=== PATIENT | female | born 1985 | race Caucasian/White ===

== ENCOUNTER → 2017-12-23 | Outpatient (CLI) | payer OTHER | END | disposition home or self-care (01) | LOC: C.PATHSPEC 14:16 | PROVIDERS: ATTEND Dentist Oral and Maxillofacial Surgery | DX: D24.9 Benign neoplasm of unspecified breast (principal) ==

== ENCOUNTER 2021-02-23 04:44 | Inpatient (IN) ==
[2021-02-23] MEDS ORDERED: OXYTOCIN 30 UNITS/500 ML BAG IV PRN (05:25)
[2021-02-23] MEDS ORDERED: LACTATED RINGER'S 1,000 ML IV PRN (05:25)
[2021-02-23 05:56] LABS: Hematocrit (blood only) 36.6 % (37-47); Hemoglobin 12.5 g/dL (12.0-16.0); Mean Corpuscular Hemoglobin 29.8 pg (25-34); Mean Corpuscular Hgb Conc 34.2 g/dL (32-36); Mean Corpuscular Volume 87.1 fL (80-100); Mean Platelet Volume 13.1 fL (7.4-10.4); Platelet Count 219 K/uL (130-400); RDW Coefficient of Variation 13.2 % (11.5-14.5); RDW Standard Deviation 41.7 fL (36.4-46.3); White Blood Count 20.12 K/uL (4.8-10.8)
[2021-02-23] MEDS ORDERED: GENTAMICIN CONSULT ACTIVE PRN (07:47)
[2021-02-23] MEDS ORDERED: ePHEDrine sulfate 50 MG/ML AMP ONE (07:51)
[2021-02-23] MEDS ORDERED: ONDANSETRON INJ 2 MG/ML 2 ML VIAL ONE (07:51)
[2021-02-23] MEDS ORDERED: PHENYLEPHRINE HCL 10 MG/ML VIAL ONE (07:51)
[2021-02-23] MEDS ORDERED: OXYTOCIN 10 UNITS/ML VIAL ONE ×3 (07:51→08:50)
[2021-02-23] MEDS ORDERED: fentaNYL citrate 100 MCG/2 ML VIAL ONE (07:51)
[2021-02-23] MEDS ORDERED: METOCLOPRAMIDE HCL INJ 5 MG/ML 2 ML VIAL ONE (07:51)
[2021-02-23] MEDS ORDERED: MoRPHine SULFATE PF 1 MG/ML 10 ML AMP/VIAL ONE (07:51)
[2021-02-23] MEDS ORDERED: LACTATED RINGER'S 1,000 ML IV SCH (08:00)
--- NOTE | 2021-02-23 08:22 | Anesthesiology Consultation ---
Date of Service February 23, 2021 Assessment & Plan Chart Review Chart Review: Acceptable Risk for Surgery Consults Requested none ASA [id number] Proposed Anesthesia Anesthesia Type: Spinal Risk / Benefits Reviewed With: PT / POA / Parent / Guardian, Accepts Plan and Informed Consent Obtained Additional Comments: was called by ob for a stat primary cs secondary to breech. discussed sab and agreed to. H+p not completed in emr prior to procedure due to time constraint of stat case but oral interview occurred exam occurred. consent sign prior to case History Surgery Operation Date: 02/23/21 08:00 Proposed Procedures p Section in LD - J. Esteban Lawrence MD, FACOG Height/Weight Height: 5 ft 8 in Weight: 83.915 kg Allergies Allergy/AdvReac Type Severity Reaction Status Date / Time Penicillins Allergy Verified 02/21/21 15:57 Medications Home Medications Medication Instructions Recorded Confirmed Last Taken prenat.vits,arabella,[id number] 1 tab PO DAILY 03/26/20 02/23/21 02/22/21 Active Medications Generic Name Dose Route Start Last Admin Trade Name Marcelle PRN Reason Stop Dose Admin Clindamycin Phosphate 900 mg/ 56 mls @ 112 mls/hr 02/23/21 09:00 02/23/21 08:08 Dextrose IV 02/24/21 05:59 112 mls/hr 0900 HARRIS Administration NPO Date Last Intake of Fluids: 02/23/21 Time Last Intake of Fluids: 06:30 Date Last Intake of Solids: 02/23/21 Time Last Intake of Solids: 00:01 Past Medical History Medical History Breast pain, left Elderly primigravida Encounter for annual routine gynecological examination History of chicken pox Vaginal bleeding affecting early Exercise / Class Metabolic Activity II 4-5 Yardwork/Stairs/Walk up hill Past Family History Family History Father Kidney stone Grandfather (Maternal) Lung cancer Grandfather (Paternal) Bladder cancer Denies family history of Ovarian cancer Breast cancer Colorectal cancer Past Surgical History Surgical History H/O oral surgery excision extra tooth from upper jaw No pertinent past surgical history Past Anesthesia History No Hx of Anesthesia Complications and No Family Hx of Anesthesia Complications History of PONV No Hx of PONV and No Hx of Motion Sickness Social History Smoking Status: Never smoker Hx Alcohol Use: No Hx Substance Use: No Physical Exam Vital Signs Last Vital Signs Temp 36.5 C 02/23/21 07:00 Pulse 57 L 02/23/21 06:59 Resp 24 02/23/21 07:00 BP 135/80 02/23/21 06:59 ENMT Mouth: no TMJ abnormality Thyromental Distance: > or= 3.5 Finger Breadths Mallampati Class: II Neck normal visual inspection and trachea midline; neck extension not limited Respiratory normal respiratory effort Auscultation: lungs clear to auscultation bilaterally Cardiovascular Rate/Rhythm: regular rate and regular rhythm Heart Sounds: no murmur Musculoskeletal Spine: normal cervical ROM Extremities: full ROM of extremities Neurologic moves all extremities Psychiatric Orientation: alert and oriented x 3 Testing Laboratory Results 02/23/21 05:44
[2021-02-23] MEDS ORDERED: KETOROLAC 30 MG/ML VIAL IV PRN (08:25)
[2021-02-23] MEDS ORDERED: NALOXONE HCL 1 MG in SODIUM CHLORIDE 0.9% 1000ML 1,000 ML IV PRN (08:25)
[2021-02-23] MEDS ORDERED: MEPERIDINE HCL 25 MG/ML CARP/VIAL IV PRN (08:25)
[2021-02-23] MEDS ORDERED: METOCLOPRAMIDE HCL 20 MG in SODIUM CHLORIDE 0.9% 50 ML IV PRN (08:25)
[2021-02-23] MEDS ORDERED: PROMETHAZINE HCL 25 MG in SODIUM CHLORIDE 0.9% 50 ML IV PRN (08:25)
[2021-02-23] MEDS ORDERED: ePHEDrine sulfate 50 MG/ML AMP IV PRN (08:25)
[2021-02-23] MEDS ORDERED: ONDANSETRON INJ 2 MG/ML 2 ML VIAL IV PRN (08:25)
[2021-02-23] MEDS ORDERED: MoRPHine SULFATE 2 MG/ML CARP IV PRN (08:25)
[2021-02-23] MEDS ORDERED: NALOXONE HCL 0.08 MG in SYRINGE 1.8 ML IV PRN (08:25)
[2021-02-23] MEDS ORDERED: NALOXONE HCL 0.4 MG/1 ML VIAL/CARP IV PRN (08:25)
[2021-02-23] MEDS ORDERED: diphenhydrAMINE 50 MG/ML VIAL IV PRN (08:25)
[2021-02-23] MEDS ORDERED: MoRPHine SULFATE PF 1 MG/ML 10 ML AMP/VIAL INT SPINAL ONE (08:25)
[2021-02-23] MEDS ORDERED: LACTATED RINGER'S 500 ML IV PRN (08:25)
[2021-02-23] MEDS ORDERED: NO NARCOTICS OR SEDATIVES SCH (08:30)
[2021-02-23] MEDS ORDERED: DC INTRASPINAL MORPHINE SCH (08:30)
[2021-02-23] MEDS ORDERED: SODIUM CHLORIDE 0.9% 1000ML 1,000 ML IV SCH (08:30)
[2021-02-23 08:44] LABS: Base Excess Cord Arterial Bld -1.8 mEq/L (-9-1.8); CO2 Cord Arterial Blood 59 mmHg (39.1-73.5); HCO3 Cord Arterial Blood 27 mmol/L (19.7-28.5); pH Cord Arterial Blood 7.27 (7.1-7.38)
[2021-02-23 08:47] LABS: Base Excess Cord Venous Blood -1.4 mEq/L (-7.7-1.9); Cord Venous Blood HCO3 24 mmol/L (18.4-26.8); Cord Venous Blood PCO2 44 mmHg (30.4-57.2); Cord Venous Blood PO2 20 mmHg (14.1-43.3); Cord Venous Blood pH 7.36 (7.20-7.44)
[2021-02-23 08:48] LABS: O2 Saturation Cord Venous Bld < 60.0 % (<68); Oxygen Sat Cord Arterial Blood < 60.0 % (<60); PO2 Cord Arterial Blood 10 mmHg (4.1-31.7)
--- NOTE | 2021-02-23 08:50 | History & Physical Report ---
Date of Service February 23Stephanie who arrived with ruptured membranes in labor and delivery in the administrative court justice hours she progressed from 1 cm to 8 cm at that time it was discovered by nursing that she was in breech presentation I then checked the patient she was then fully dilated I scanned with the ultrasound she was in fact breech presentation I palpated a destinee breech. At this stage we recommended section or I reviewed this with the patient including risks benefits and alternatives at this stage though was an emergency and I strongly recommend ed the patient agreed consent was signed section. The patient was counseled to the nature of the procedure including alternatives such as labor. Risks were discussed including bleeding infection injury to bowel bladder ureter vessels and even baby. Deep Vein thrombosis, pulmonary embolus discussed. Breakdown of incision reviewed. Deep vein thrombosis pulmonary embolus hernia and failure of the incision to heal were discussed Patient verbalized understanding of this and was given ample time to ask questions Assessment & Plan Admission and Anticipated Discharge Date Admission Date: February 23, 2021 History of Present Illness Primary Care Provider: NO PCP Allergies Allergy/AdvReac Type Severity Reaction Status Date / Time Penicillins Allergy Verified 02/21/21 15:57 Home Medications Medication Instructions Recorded Confirmed Type prenat.vits,arabella,[id number] 1 tab PO DAILY 03/26/20 02/23/21 History Patient History Medical History Breast pain, left Elderly primigravida Encounter for annual routine gynecological examination History of chicken pox Vaginal bleeding affecting early Surgical History H/O oral surgery excision extra tooth from upper jaw No pertinent past surgical history Family History Father Kidney stone Grandfather (Maternal) Lung cancer Grandfather (Paternal) Bladder cancer Denies family history of Ovarian cancer Breast cancer Colorectal cancer Social History (Updated 07/12/20 @ 09:03 by Oma Villavicencio) Smoking Status: Never smoker Hx Alcohol Use: No Hx Substance Use: No Preferred Language: Vincentian Communication Ability: Effective Attendant Arcade Required: No Beliefs That Will Affect Care: None marital status: single marital status details: Shamir Moreau [phone] Current Living Situation: Significant Other Current Living Situation Comment: lives with fob, cat-spouse changing litter current occupational status: employed 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
--- NOTE | 2021-02-23 08:54 | Operative Report ---
PG Post Operative Report Pre & Post Diagnosis Operation Date: 02/23/21 08:00 Pre-Op Diagnosis: Primary Section; Breech in labor Post-Op Diagnosis: Primary Section; Breech in labor; low transverse section I identified the patient and participated in the time-out.: Yes Procedure Operation Date: 02/23/21 08:00 Actual Procedures p Section in LD - Francisco Javier Lawrence MD, FACOG Surgeon Francisco Javier Lawrence MD, FACOG Green Building Architect . Estimated Blood Loss 550 Findings Consistent with Post-Op Diagnosis Specimens Cord gases and cord blood Description of Procedure Patient was given clindamycin and gentamicin preoperatively as she has a family history of a life-threatening penicillin allergy I did speak with anesthesia we reviewed recommended spinal as I felt we had time and this was performed by Dr. Robles she was prepped and draped in supine position with a leftward tilt Myles catheter been inserted as well SCDs were on her leg and skin area was tested with pickups with teeth and found to be adequate Pfannenstiel was made with scalpel dissecting down through subtenons fat to the fascia the midline fascia cut laterally with curved Vera scissors and then released superiorly and inferiorly from the rectus muscles with curved Vera scissors entry was done bluntly into the peritoneal cavity opening stretch to allow exposure bladder retractor placed Metzenbaums used to dissect away the bladder flap incision made with scalpel in a low transverse fashion on the uterus entry was done bluntly with the scoring machine operator's finger baby was in breech position I was able to elevate the breech out of the pelvis and then by flexing the hips and then pressure from the scoring machine operator the buttocks were then delivered baby's back was turned towards anterior there was no nuchal cord, gentle traction using a moist lap on the baby then arms were delivered by sweeping towards the chest baby's head was then delivered with pressure I did use bandage scissors to make a small enlargement of the uterine incision laterally to allow room and then baby was delivered without difficulty no excessive extension of t he head. Baby was handed to pediatrics cord clamped and cut cord gases obtained placenta removed from the uterus IV Pitocin was started uterus was exteriorized and found to be normal as was the adnexa there was no septum or bicornuate uterus Uterus was closed in usual fashion a running 0 Monocryl locked and a second reinforcing 0 Monocryl nonlocked uterus was placed back in the peritoneal cavity suction irrigation hemostasis excellent urine was clear at this stage We reviewed inspected the rectus muscles and these were found to be dry fascia closed with 0 Vicryl subtenons fat irrigated and closed with 3-0 Vicryl skin closed with 4 oh septic or Monocryl Steri-Strips applied urine clear at the end of procedure sponge and instrument counts correct I attest to the content of the Intraoperative Record and any orders documented therein. Any exceptions are noted below. Procedure Pre-op/Post-op diagnoses: Pre-Op/Post-Op Diagnoses Operation Date: 02/23/21 08:00 Pre-Op Diagnosis: Primary Section; Breech in labor Post-Op Diagnosis: Primary Section; Breech in labor; low transverse section Procedure: Procedures Operation Date: 02/23/21 08:00 Actual Procedures Side Surgeon p Section in LD Francisco Javier Lawrence MD, FACOG
[2021-02-23] MEDS ORDERED: CLINDAMYCIN 900 MG in DEXTROSE 5% 50 ML IV SCH (09:00)
[2021-02-23] MEDS ORDERED: GENTAMICIN SULFATE 360 MG in DEXTROSE 5% 100 ML IV SCH (09:00)
--- NOTE | 2021-02-23 09:01 | Anesthesiology Progress Note ---
Date of Service February 23, 2021 Anesthesia Post Procedure Vital Signs Vital Signs: Temp Pulse Resp BP 02/23/21 08:51 64 115/63 02/23/21 07:00 36.5 C 24 02/23/21 06:59 57 L 135/80 02/23/21 05:09 36.6 C 59 L 18 139/74 02/23/21 05:02 36.6 C 59 L 18 139/74 Pain Intensity Bilateral Abdomen: Pain Intensity: 8 Transfer of Care Handoff Completed per policy Notes Mental Status: alert / awake / arousable Patient Amnestic to Procedure: Yes Nausea / Vomiting: adequately controlled Pain: adequately controlled Airway Patency, RR, SpO2: stable & adequate BP & HR: stable & adequate Hydration State: stable & adequate Neuraxial Anesthesia: was administered and sensory block is resolving Anesthetic Complications: no major complications apparent and Pt Satisfied with anesthetic care
[2021-02-23] MEDS ORDERED: BENZOCAINE 20% AER SPR 82.5 GM CAN EXT PRN (09:28)
[2021-02-23] MEDS ORDERED: NON-FORMULARY MEDICATION (Prenat.Vits,Cal,Min-Iron-Folic tablet) PO SCH (09:28)
[2021-02-23] MEDS ORDERED: MAGNESIUM HYDROXIDE SUSP 30 ML UDC PO PRN (09:28)
[2021-02-23] MEDS ORDERED: HYDROCORTISONE ACETATE 25 MG SUPP PR PRN (09:28)
[2021-02-23] MEDS ORDERED: SUPERCREAM 0.870% 15 GM JAR EXT PRN (09:28)
[2021-02-23] MEDS: OXYTOCIN 20 UNITS in LACTATED RINGER'S 1,000 ML IV SCH ×2 (11:39→20:02)
[2021-02-23] MEDS: DOCUSATE SODIUM 100 MG CAP PO SCH (21:05)
[2021-02-24] MEDS ORDERED: ONDANSETRON INJ 2 MG/ML 2 ML VIAL IV PRN (02:25)
[2021-02-24] MEDS ORDERED: MEPERIDINE HCL 50 MG/ML CARP IV PRN (02:25)
[2021-02-24] MEDS ORDERED: oxyCODONE/ACETAMINOPHEN 5mg/325mg TAB PO PRN (02:25)
[2021-02-24] MEDS ORDERED: KETOROLAC 30 MG/ML VIAL IV PRN (02:25)
[2021-02-24] MEDS ORDERED: diphenhydrAMINE Capsule 25 MG CAP PO PRN (02:25)
[2021-02-24] MEDS ORDERED: PROMETHAZINE HCL 25 MG in SODIUM CHLORIDE 0.9% 50 ML IV PRN (02:25)
--- NOTE | 2021-02-24 06:55 | Obstetrical Progress Note ---
Date of Service February 24, 2021 Results & Data ([facility]) Vital Signs (Past 12 Hours) Vital Signs Temp Pulse Resp BP Pulse Ox 02/24/21 03:15 36.7 C 76 20 136/90 96 02/24/21 02:20 18 99 02/24/21 01:30 18 97 02/24/21 00:45 36.7 C 69 18 132/79 97 02/23/21 23:05 18 99 02/23/21 22:35 18 99 02/23/21 21:04 20 100 02/23/21 20:35 36.8 C 69 20 135/88 100 02/23/21 19:15 20 98
--- NOTE | 2021-02-24 06:57 | Obstetrical Progress Note ---
Date of Service February 24, 2021 Postop day #1 patient is doing well she has not voided yet she has not ambulated yet her pain is well controlled she has no extremity pain Assessment & Plan (1) state: Postoperative day #1 encourage ambulation did not inspect her incision today as she was actively breast-feeding we will pull the bandage later today Physical Exam Constitutional WD/WN, vitals as above Results & Data ([facility]) Vital Signs (Past 12 Hours) Vital Signs Temp Pulse Resp BP Pulse Ox 02/24/21 03:15 98.1 F 76 20 136/90 96 02/24/21 02:20 18 99 02/24/21 01:30 18 97 02/24/21 00:45 98.1 F 69 18 132/79 97 02/23/21 23:05 18 99 02/23/21 22:35 18 99 02/23/21 21:04 20 100 02/23/21 20:35 98.2 F 69 20 135/88 100 02/23/21 19:15 20 98
[2021-02-24] MEDS: PRENATAL VITAMIN 1 TAB PO SCH (08:16)
[2021-02-24] MEDS: DOCUSATE SODIUM 100 MG CAP PO SCH ×2 (08:16→20:59)
[2021-02-24] MEDS: IBUPROFEN 600 MG TAB PO PRN ×2 (08:19→17:53)
[2021-02-24] MEDS ORDERED: bisacodyL 5 MG TABEC PO SCH (20:00)
[2021-02-25] MEDS: IBUPROFEN 600 MG TAB PO PRN ×2 (00:01→08:47)
--- NOTE | 2021-02-25 06:55 | Obstetrical Progress Note ---
Date of Service <Demarcus Salas MD - Last Filed: 02/25/21 07:46> February 25, 2021 Assessment & Plan <Demarcus Salas MD - Last Filed: 02/25/21 07:46> (1) Supervision of elderly primigravida, antepartum: A/P: Radha Whiteside is a 35yo female on POD#2 s/p delivery at 40wga. * VSS * Patient feels well today; eating well, voiding well, ambulating well * Pain well-controlled with oxycodone/acetaminophen 0.5-1 tabs q4h prn * PNL: Rh neg, RI, GBS neg, COVID neg * Baby is also Rh neg - no further Rhogam indicated * Routine post- care: OOB, ambulation, diet progression as tolerated * After discharge, will have six-week follow-up with Dr. Lawrence Subjective <Demarcus Salas MD - Last Filed: 02/25/21 07:46> Radha Whiteside is a 35yo female on POD#2 s/p delivery at 40wga. This morning she reports feeling well overall. Reports mild crampy abdominal pain well-managed on analgesics. Tolerating PO intake without nausea or vomitin g. Patient has been able to ambulate without lightheadedness or dizziness. Lochia continues, though with some improvement this morning. Passing flatus. Myles catheter has been removed and patient is voiding without difficulty. Currently . Review of Systems Denies fever, chills, CP, SOB, cough, breast pain, dysuria, leg pain, leg swelli ng, headache, and changes in vision. Physical Exam <Demarcus Salas MD - Last Filed: 02/25/21 07:46> Gen: awake, alert, oriented, laying in bed comfortably Cardiac: regular rhythm, no murmurs appreciated Resp: lungs CTABL, good respiratory effort, no increased WOB, no wheezes/rales/rhonchi Abd: normal gravid abdomen, soft, minimally tender, BS present, incision CDI with mild surrounding ecchymosis : uterine fundus firm, palpable below umbilicus LE: no lower extremity edema or swelling, no deep calf pain, Galina's negative bilaterally Results & Data ([facility]) <Demarcus Salas MD - Last Filed: 02/25/21 07:46> Vital Signs (Past 12 Hours) Vital Signs Temp Pulse Resp BP Pulse Ox 02/24/21 23:45 36.7 C 74 18 119/81 96 02/24/21 19:50 36.8 C 86 18 135/89 96 <Margi Ernst MD, FACOG - Last Filed: 02/25/21 08:38> Co-Signing Physician Notes Resident Physician Supervision Note: I interviewed and examined the patient. Discussed with Dr. Salas and agree with findings and plan as documented in the note. Any exceptions or clarifications are listed here: [None] Documented By: Margi Ernst MD, FACOG Resident Activity Tracking <Demarcus Salas MD - Last Filed: 02/25/21 07:46> Resident Involvement: Resident Care Provided Care Provided: OB Delivery
[2021-02-25] MEDS ORDERED: bisacodyL 10 MG SUPP PR PRN (08:46)
[2021-02-25] MEDS: PRENATAL VITAMIN 1 TAB PO SCH (08:47)
[2021-02-25] MEDS: DOCUSATE SODIUM 100 MG CAP PO SCH (08:47)
--- NOTE | 2021-02-27 07:23 | Discharge Summary ---
Date of Service February 27, 2021 Admission HPI Per Admitting Provider Patient was admitted in active labor progressed rapidly to 8 cm at that time it was determined she was breech presentation a stat was recommended this was performed without complication Admission Exam (Per Admitting) Constitutional WD/WN, vitals as above (incision cdi) Discharge Data Consultations 02/23/21 05:25 Consult Anesthesiology Stat Procedures Performed Operation Date: 02/23/21 08:00 Actual Procedures p Section in LD - J. Esteban Lawrence MD, [facility] Course (1) state: Postoperative from section patient meets discharge criteria as she is ambulating well tolerating an oral diet has minimal bleeding and no extremity pain. Discharge instructions were reviewed and prescriptions were sent to her pharmacy of choice patient advised to call with any concerns and follow-up in the office discussed Coding Level of Care Code None Diagnoses state Z39.2
== END 2021-02-25 13:00 | disposition home or self-care (01) | DRG 788 ==
LOC: OPB 04:44 → 4S1 04:47 → 4S2 14:46